=== PATIENT | female | born 1975 | race Caucasian/White ===

== ENCOUNTER 2023-02-01 15:04 | Emergency (ER) | payer OTHER, SELFPAY ==
[2023-02-01 15:12] VITALS: BP 109/70; PULSE 82; RESP 18; O2SAT 99
--- NOTE | 2023-02-01 15:15 | DI.RAD_ITS ---
Exam(s) XR KNEE LT 3V AP,LAT,ASCENCION EXAM: XR KNEE LT 3V AP,LAT,ASCENCION CLINICAL HISTORY: L knee pain. TECHNIQUE: 2D digital imaging was performed of the left knee. Three images were obtained. AP, late ral and PA tunnel views were obtained. COMPARISON: No exams were available for comparison FINDINGS: BONES: No acute fracture is present. No bony destructive lesion is seen. JOINTS: The knee is normally aligned. There is a small joint effusion. Degenerative changes are seen in the knee characterized by joint space narrowing and osteophytes. The findings are most marked in the medial femoral tibial and patellofemoral joint. There are small density seen posteriorly which may be loose bodies. SOFT TISSUE: Normal. IMPRESSION: 1. No acute fracture or dislocation. 2. Mild degenerative changes in the knee. DATA REPOSITORY: RADIATION DOSE DELIVERED:
--- NOTE | 2023-02-01 15:25 | ED.GENADUL_ITS ---
Discharge Plan Disposition Patient Disposition: Home Condition: Stable Discharge Details Clinical Impression: Left knee pain Primary Care Provider: Vani,Local ED Provider: Compa Segal Home Meds and New Rx's Prescriptions: Continued lisdexamfetamine [Vyvanse] 50 mg capsule 50 mg PO DAILY nadolol 40 mg tablet 40 mg PO DAILY Discharge Instructions Instructions: Knee Pain (ED) Additional Instructions: You were seen in the emergency department for your left knee pain, there is no fracture seen on x-ray, you have a small joint effusion and some degenerative changes of arthritis. You do have some calcifications in your suprapatellar tendon, this is possibly prepatellar bursitis versus irritation from overuse and arthritis. Please treat aggressively with an [id number] compression knee brace, rest, ice, compress and elevate the knee as often as possible over the next few days. Please use therapeutic dosing of Tylenol (acetamenophen) & Advil (ibuprofen) in an alternating fashion as follows: Take 1000mg of Tylenol every 6 hours without missing doses- that is 4 times per day. Long-Term in between the Tylenol dosings, take 400-600mg of Advil also on a 6 hour schedule, that is also 4 times per day. The daily maximum dosing of Tylenol is 4000mg, and the daily maximum dosing of Advil is 2400mg. This is safe to do for weeks. Please note that some common cold medications & prescription pain medications may contain acetamenophen and you need to read OTC drug labels and factor that in to maximum daily dosings. If your pain persist past 7 to 10 days please contact your primary care provider for possible referral to orthopedics for further investigation of possible meniscal injury. Referrals: [facility] [Provider Group] Discharge Data Discharge Date/Time-TO BE ENTERED AT DEPARTURE: 02/01/23 17:09 Medical Decision Making This dictation utilizes [id number] dictation software and may contain unedited grammatical errors. 47 y/o F, R-foot dominant, presents to ED today with a chief complaint of L knee pain- significant exertion/overuse this week with 7-8 mi walking per day and was doing chores on her knees last night and notes pain to L knee feeling similar to prior meniscal injuries or rupture walter's cyst from contralateral leg in remote history. Onset and characteristics include soreness noted anterior knee and mild in popliteal fossa, no popping sensation, no locking. Patients' medical history: negative, otherwise healthy- prior surgery to R knee. Family and social history: noncontributory. Pertinent exam findings / vital signs include Humphrey negative, neurovascularly intact in distal left lower extremity, no pain with varus valgus forces applied, Mahin negative, mild joint line tenderness in popliteal fossa tenderness, Homans negative, no medial thigh tenderness or skin changes. Differential / pathologies of concern include prepatellar bursitis, walter's cyst, meniscal injury, arthritis, IT band syndrome. Diagnostic studies of: -XR L Knee. -XR shows no acute fracture, degenerative changes. Interventions of: -1g Tylenol, 400mg ibuprofen, ice pack. ED Course/Assessment/Plan: Counseled the patient on no acute fracture and likely bursitis versus arthritis possible IT band syndrome. Counseled on therapeutic dosing Tylenol ibuprofen, obtaining an [id number] knee brace and performing RICE therapy and following up with orthopedics if pain does not improve in 7 to 10 days. Findings not consistent with fracture or neuro vascular compromise or severe internal knee injury. Disposition of Left Knee Pain. Patient verbalized understanding of the plan and return to ED criteria and engaged in shared decision making. Medical Records Medical records reviewed: Yes I reviewed the patient's medical records. Imaging Data Radiologic Study: Imaging: X-Ray My impression: Small effusion seen Radiologist's impression: V rad reads mild tricompartmental joint space narrowing and osteophyte formation consistent with arthritis, no evidence of acute fracture or malalignment or dislocation HPI General Date/Time Provider Initiated Documentation: 02/01/23 15:21 . HPI Narrative: 47 year-old female presents to ED today by POV/ambulating with her with a chief complaint of L knee pain- R-foot dominant, with onset noted last night. Patient endorses spending significant amount of time on her knees, has surgical history to R knee- may be favoring her left more, and notes lots of walking (7- 8mi per day) for the past week. Quality described as feels sharp, like past menicus injuries, vs ruptured walter's cyst to contralateral leg in remote history, no radiation to calf pain, calf swelling, skin changes, inability to ambulate, endorses mild pain up the IT band and soreness in her hip. Severity is described as 5-6/10. Palliating factors include nothing specific attempted. Provoking factors include nothing specific. Patient not anticoagulated. Related Data Home Medications Medication Instructions Recorded Confirmed lisdexamfetamine 50 mg capsule 50 mg PO DAILY 02/01/23 02/01/23 (Vyvanse) nadolol 40 mg tablet 40 mg PO DAILY 02/01/23 02/01/23 General Stated Complaint: Orthopedic ANUP: 4 Review of Systems All systems reviewed & are unremarkable except as noted in HPI and below PFSH All Active Problems (Updated 02/01/23 @ 16:57 by GHASSAN Campbell) Left knee pain (Acute) Social History Smoking/Tobacco Use Status: Never Smoking risk assessment performed?: Yes Substance use type: does not use Do you feel safe at home: Yes Do you feel safe in your relationship?: Yes Exam Narrative Exam Narrative: GENERAL APPEARANCE: Well-nourished, non-toxic, awake and alert, atraumatic, no acute distress. SKIN: Warm, pink, dry, intact, without rashes/lesions/ulcerations. HEAD: Normocephalic, atraumatic, normal hair distribution for gender/age. EYES: Pupils PERRLA, EOMs intact without nystagmus, normal conjunctiva, no exudates on lids/lashes. ENT: Nares patent, no circumoral cyanosis, no facial swelling NECK: Supple, trachea midline, painless cervical ROM. LUNGS/CHEST: Non-labored respirations, normal A/P diameter, symmetrical expansion, no chest wall deformity HEART (CV/PV): Regular rate, L popliteal pulse 2+, no peripheral edema, no JVD. ABDOMEN: Soft, non-distended, no guarding. MSK: Normal ROM, no swelling/deformity to bilateral UEs or LEs, moving all extremities without weakness, no cyanosis, spine midline without tenderness, normal curvature. L LE: No crepitus, mild joint line tenderness and posterior popliteal fossa tenderness, mild swelling/effusion, Homans negative, no calf swelling or skin changes, no medial thigh tenderness, mild soreness along the IT band, Humphrey negative, Mahin negative, no tenderness with varus valgus forces applied. NEURO: Mental Status AAOx4 - alert to person, place, time, events No facial droop, no forehead involvement. Motor: No focal weakness - strength 5/5 in bilateral UEs and LEs, proximal and distal, symmetric. Sensory: sensation intact to light touch globally. Gait normal: patient ambulated with mild antalgia PSYCH: euthymic, cooperative, pleasant, appropriate speech Course Vital Signs Vital signs: Vital Signs Pulse 82 02/01/23 15:12 Respiratory Rate 18 02/01/23 15:12 Blood Pressure 109/70 02/01/23 15:12 Pulse Oximetry 99 02/01/23 15:12 Pulse 82 02/01/23 15:12 Respiratory Rate 18 02/01/23 15:12 Blood Pressure 109/70 02/01/23 15:12 Blood Pressure Position Sitting 02/01/23 15:12 Pulse Oximetry 99 02/01/23 15:12 Oxygen Delivery Method Room Air 02/01/23 15:12 Oxygen Flow Rate 0 02/01/23 15:12
[2023-02-01] MEDS: Ibuprofen 400 MG TAB PO (15:46)
[2023-02-01] MEDS: Acetaminophen 500 MG TAB 1000 MG PO (15:46)
--- NOTE | 2023-02-01 16:48 | DI.VRAD_ITS ---
PROCEDURE INFORMATION: Exam: XR Left Knee Exam date and time: 02/01/2023 4:22 PM Age: 47 years old Clinical indication: Pain; Knee; Left TECHNIQUE: Imaging protocol: Radiologic exam of the left knee. Views: 3 views. COMPARISON: No relevant prior studies available. FINDINGS: Bones/joints: Mild Tricompartmental joint space narrowing and osteophyte formation consistent with degenerative changes. There is no evidence of acute fracture.There is no evidence of malalignment or dislocation. Soft tissues: Normal. IMPRESSION: 1. Mild Tricompartmental joint space narrowing and osteophyte formation consistent with degenerative changes. 2. There is no evidence of acute fracture.There is no evidence of malalignment or dislocation. Dictated and Authenticated by: Eliz Blankenship MD. Ordering:REVA Chatman MD
== END 2023-02-01 17:09 | disposition home or self-care (01) ==
PROVIDERS: Emergency Provider Physician Assistant
DX: M25.562 Pain in left knee (principal)
CPT/HCPCS: 73562; 99283